=== PATIENT | female | born 1950 ===

== ENCOUNTER → 2016-09-24 | Day surgery (SDC) | payer BC ==
[~2016-09-24] VITALS: Ht 149.9 cm; Wt 58.5 kg
[2016-09-24] VITALS (11 sets, daily range): BP systolic 117–131; BP diastolic 63–79
[~2016-09-24] MED LIST: BSS 15ml BTL ONE; BSS 500ml btl ONE; Bupivacaine 0.75% 30ml vial INJ ONE; Cyclopentolate 1% Opth Sol LEFT EYE SCH; Cyclopentolate 1% Opth Sol ONE; Dexamethasone 4mg/ml vial ONE; Gatifloxacin Opth Solution 0.5% BOTH EYES SCH; Goniosol 2.5% Opth Soln - 15ml ONE; Indocyanine Green 25mg Inj INJ ONE; Kenalog-10 5ml Inj ONE; Kenalog-40 1ml Vial ONE; LEVOTHYROXINE100 MCG ORAL; Lidocaine 2% MPF 5ml Vial INJ ONE; Metoclopramide 10mg/2ml Inj ONE; NS Irrig 1000ml ONE; Phenylephrine 2.5% Op Soln LEFT EYE SCH; Phenylephrine 2.5% Op Soln ONE; Povidone-Iodine 5% opth solution ONE; Pred Forte 1% Opth Susp 1ml ONE; Sterile Water Irrig 1000ml IRRIG ONE; Tetracaine 0.5% Opth Soln ONE
[2016-09-24] MEDS: Phenylephrine 2.5% Op Soln LEFT EYE SCH ×3 (06:55→07:11)
[2016-09-24] MEDS: Cyclopentolate 1% Opth Sol LEFT EYE SCH ×3 (06:55→07:11)
--- NOTE | 2016-09-24 07:24 | Pre-Procedure Note/Attestation ---
Pre-Procedure Note/Attestation Complete Prior to Procedure Planned Procedure: left Indications for Procedure Pre-Operative Diagnosis: FTMH OS, history of retinal tears Attestation I attest that I discussed the nature of the procedure; its benefits; risks and complications; and alternatives (and the risks and benefits of such alternatives ), prior to the procedure, with the patient (or the patient's legal sales representative [employer]). I attest that, if there was a reasonable possibility of needing a blood transfusion, the patient (or the patient's legal sales representative [employer]) was given the [facility] standardized written summary, pursuant to the [place] [employer] Blood Safety Act ([place] Health and Safety Code # 1645, as amended). I attest that I re-evaluated the patient just prior to the surgery and that there has been no change in the patient's H&P, except as documented below: JEMAL BRANDT M.D. Sep 24, 2016 07:23
--- NOTE | 2016-09-24 07:25 | Operative Note - PDOC ---
Operative Note Operative Note Pre-op Diagnosis: FTMH OS, history of retinal tears Procedure: PPV, ICG, ILM, EL, SF6 Post-op Diagnosis: same as pre-op Anesthesia: local, MAC Specimen: none Complications: none Condition: stable Estimated Blood Loss: none Drains: none Implant(s) used?: No JEMAL BRANDT M.D. Sep 24, 2016 07:25
--- NOTE | 2016-09-24 08:30 | Anethesia Preoperative Eval ---
Anesthesia Pre-op PMH/ROS General Date of Evaluation: Sep 24, 2016 Time of Evaluation: 08:28 Anesthesiologist: Alfred ASA Score: ASA 2 Mallampati Score Class I : Soft palate, uvula, fauces, pillars visible Class II: Soft palate, uvula, fauces visible Class III: Soft palate, base of uvula visible Class IV: Only hard plate visible Mallampati Classification: Class III Surgeon: Rhoda Diagnosis: Macular hole Surgical Procedure: Vitrectomy Anesthesia History: none Family History: no anesthesia problems Allergies: Coded Allergies: No Known Allergies (Unverified , 09/06/16) Medications: see eMAR Past Medical History Cardiovascular: Reports: HTN Pulmonary: Denies: COPD, ELSY, asthma, other Gastrointestinal/Genitourinary: Denies: CRI, ESRD, GERD, other Neurologic/Psychiatric: Denies: CVA, TIA, dementia, depression/anxiety, other Endocrine: Denies: DM, hypothyroidism, other, steroids HEENT: Denies: APACHE (L), APACHE (R), cataract (L), cataract (R), glaucoma, other Hematology/Immune: Denies: DVT, anemia, bleeding disorder, other Musculoskeletal/Integumentary: Denies: DDD, DJD, OA, RA, edema, other Anesthesia Pre-op Phys. Exam Physician Exam Last Vital Signs Date Time Temp Pulse Resp B/P Pulse Ox O2 Delivery O2 Flow Rate FiO2 09/24/16 07:04 97.9 72 18 129/75 97 Room Air Constitutional: NAD Neurologic: CN 2-12 intact Cardiovascular: RRR Respiratory: CTA Gastrointestinal: S/NT/ND Airway Exam Mallampati Score: Class III LAWRENCE GRACIA M.D. Sep 24, 2016 08:30
--- NOTE | 2016-09-24 08:31 | Immediate Post-Op Evaluation ---
Immediate Post-Op Evalulation Immediate Post-Op Evalulation Procedure: Vitrectomy Date of Evaluation: Sep 24, 2016 Time of Evaluation: 09:45 IV Fluids: 300 Blood Products: 0 Estimated Blood Loss: 0 Urinary Output: 0 Blood Pressure Systolic: 130 Blood Pressure Diastolic: 80 Pulse Rate: 80 Respiratory Rate: 20 O2 Sat by Pulse Oximetry: 98 Temperature (Fahrenheit): 97.6 Pain Score (1-10): 1 Nausea: No Vomiting: No Complications na Patient Status: awake Hydration Status: adequate Given Within 1 Hr of Incision: LAWRENCE Dunham M.D. Sep 24, 2016 08:31
--- NOTE | 2016-09-24 08:33 | 48 Hour Post Anesthesia Eval ---
Post Anesthesia Evaluation Procedure: Vitrectomy Date of Evaluation: Sep 24, 2016 Time of Evaluation: 10:45 Blood Pressure Systolic: 130 0: 80 Pulse Rate: 80 Respiratory Rate: 20 Temperature (Fahrenheit): 97.7 O2 Sat by Pulse Oximetry: 98 Airway: patent Nausea: No Vomiting: No Pain Intensity: 2 Hydration Status: adequate Cardiopulmonary Status: stable Mental Status/LOC: patient returned to baseline Follow-up Care/Observations: na Post-Anesthesia Complications: na Follow-up care needed: N/A LAWRENCE GRACIA M.D. Sep 24, 2016 08:33
--- NOTE | 2016-10-01 15:40 | Operative Note - Dictated ---
DATE OF OPERATION: 09/24/2016 INDICATION FOR SURGERY: This is a patient with a full-thickness macular hole in the left side. This is a surgery suturing the macular hole. PREOPERATIVE DIAGNOSES: 1. Full-thickness macular hole. 2. History of retinal tear status post laser. 3. Nuclear cataract on the left side. POSTOPERATIVE DIAGNOSES: 1. Full-thickness macular hole. 2. History of retinal tear status post laser. 3. Nuclear cataract on the left side. PROCEDURE: Pars plana vitrectomy, ICG-assisted internal limiting membrane peel, fluid exchange, induction of 20% SF6 gas onto the left side. SURGEON: Yves Duong M.D. WILLOW MACHINE OPERATOR: None. ANESTHESIA: Monitored anesthesia care with retrobulbar block. SPECIMENS: None. COMPLICATIONS: None. DESCRIPTION OF PROCEDURE: Informed consent was obtained prior to surgery. The patient understood that the risks of surgery included infection, bleeding, need for additional surgery, permanent vision loss, failure for macular closure, development of additional tears, definite progression of cataracts, as well as others. Despite these risks, the patient decided to proceed with the surgery. She was brought to the operative suite and placed her on monitoring devices. A verbal time-out was called to verify the surgical site. The patient was then transiently placed under general anesthesia and a 50/50 mixture of lidocaine and 0.75% Marcaine was given within the retrobulbar space without complication. The patient was then prepped and draped. Next, using 22-gauge system with conjunctival displacement and an angled approach, a trocar was used to insert a cannula, 4 mm from the surgical limbus in the anterior temporal quadrant. An infusion line was assembled and checked for proper placement. Two additional cannulae were placed in a similar fashion, one superonasal and one superotemporal. Pars plana vitrectomy was begun. Core vitrectomy was performed. Kenalog was added to better highlight the hyaloid. The hyaloid was attached to the nerve. Using the soft tip cannula, the hyaloid was released and peeled off the nerves from the periphery. Peripherally checking was then performed. There were no tears or hemorrhages created. Next, ICG was added in the eye and immediately removed. All measures were taken to avoid photic injury. Next, using ILM forceps, the internal membrane was peeled from the macula without complication. Next, was examined and no acute pathology was noted. Fluid exchange was performed and 20% SF6 gas was injected into the eye. The cannulas were removed and the sclerotomy was checked and found to be watertight. Subconjunctival injections of vancomycin and Decadron were given. At this time , the eye was at physiological pressure and the patient had tolerated the procedure well and suffered no complications. She was taken to recovery in excellent condition. Yves Duong M.D. DR: PANDA JOB#: [id number] CC:
== END | disposition home or self-care (01) ==
LOC: SUR 06:21
DX: H35.342 Macular cyst, hole, or pseudohole, left eye (principal); H25.12 Age-related nuclear cataract, left eye; E78.00 Pure hypercholesterolemia, unspecified; R73.01 Impaired fasting glucose; E03.9 Hypothyroidism, unspecified; I10 Essential (primary) hypertension; Z96.642 Presence of left artificial hip joint; Z87.891 Personal history of nicotine dependence
CPT/HCPCS: 67042; J1100; J2405; J2765; J3301; J3370; J3470; J3490; 94003; 94150